=== PATIENT | male | born 1980 | race Caucasian/White ===

== ENCOUNTER 2021-02-20 13:59 | Emergency (ER) | payer SELFPAY ==
[2021-02-20 16:50] LABS: Basophils # (Auto) 0.1 K/mm3 (0.0-0.1); Eosinophils # (Auto) 0.1 K/mm3 (0.0-0.4); Eosinophils % (Auto) 0.9 % (0.0-4.3); Hematocrit 38.5 % (35.5-45.6); Hemoglobin 12.9 gm/dl (11.8-15.2); Lymphocytes # (Auto) 2.1 K/mm3 (1.2-5.4); Lymphocytes % (Auto) 36.2 % (13.4-35.0); Mean Corpuscular HGB Conc 33 % (32-34); Mean Corpuscular Volume 82 fl (84-94); Monocytes # (Auto) 0.4 K/mm3 (0.0-0.8); Monocytes % (Auto) 7.5 % (0.0-7.3); Platelet Count 205 K/mm3 (140-440); Red Blood Count 4.71 M/mm3 (3.65-5.03); Red Cell Distribution Width 14.5 % (13.2-15.2)
[2021-02-20 17:13] LABS: Alanine Aminotransferase 20 units/L (7-56); Albumin 3.8 g/dL (3.9-5); BUN/Creatinine Ratio 14; Blood Urea Nitrogen 13 mg/dL (9-20); Calcium 9.3 mg/dL (8.4-10.2); Hemolysis Index 24
[2021-02-20] MEDS ORDERED: SODIUM CHLORIDE 0.9% 1000 ML 1,000 ML IV ONE (17:31)
[2021-02-20] MEDS ORDERED: INSULIN REGULAR, HUMAN 100 UNITS/1 ML IV ONE (17:32)
--- NOTE | 2021-02-20 17:52 | Emergency Department Report ---
HPI - General Chief Complaint: Hyperglycemia Time Seen by Provider: 02/20/21 17:16 - HPI HPI: This is a 40-year-old -[place] male presents to the emergency department with multiple complaints including hyperglycemia, needing a mental health evalua tion and needing drug/alcohol detox. The patient says that he just recently became homeless about 1 week ago. He has been sleeping behind a local convenience store. The patient lost his residence recently apparently he also lost his medications. Patient is on Metformin XR 500 mg daily, NovoLog 8 to 10 units with meals, and Levemir 26 units at night. The patient also says that he has been feeling very depressed and suicidal secondary to his current situation. He called the [place] crisis line and was told to come to the emergency department for a medical and mental health evaluation, and possibly also for substance abuse. Patient drank "my last 2 beers" around 5 AM this morning. Patient last used crack cocaine yesterday. ED Past Medical Hx - Past Medical History Previous Medical History?: Yes Hx Diabetes: Yes - Surgical History Past Surgical History?: No ED Review of Systems ROS: Stated complaint: HYPERGLYCEMIA Other details as noted in HPI Comment: All other systems reviewed and negative Constitutional: denies: chills, fever Eyes: denies: eye pain, vision change ENT: denies: ear pain, throat pain Respiratory: denies: cough, shortness of breath Cardiovascular: denies: chest pain, palpitations Endocrine: increased thirst Gastrointestinal: denies: abdominal pain, vomiting Genitourinary: denies: dysuria, discharge Musculoskeletal: denies: back pain, arthralgia Skin: denies: rash, lesions Neurological: denies: headache, weakness Psychiatric: depression, suicidal thoughts. denies: auditory hallucinations, visual hallucinations Physical Exam - Physical Exam Vital Signs: Vital Signs 02/20/21 16:05 Temperature 98.8 F Pulse Rate 70 Respiratory 18 Rate Blood Pressure 129/78 [Right] O2 Sat by Pulse 100 Oximetry Physical Exam: GENERAL: The patient is well-developed well-nourished. HENT: Normocephalic. Atraumatic. Patient has moist mucous membranes. EYES: Extraocular motions are intact. NECK: Supple. Trachea is midline. CHEST/LUNGS: Clear to auscultation. There is no respiratory distress noted. HEART/CARDIOVASCULAR: Regular. There is no tachycardia. There is no murmur. ABDOMEN: Abdomen is soft, nontender. Patient has normal bowel sounds. SKIN: Skin is warm and dry. NEURO: The patient is awake, alert, and oriented. The patient is cooperative. The patient has no focal neurologic deficits. Normal speech. MUSCULOSKELETAL: There is no tenderness or deformity. There is no limitation range of motion. ED Course Vital Signs 02/20/21 16:05 Temperature 98.8 F Pulse Rate 70 Respiratory 18 Rate Blood Pressure 129/78 [Right] O2 Sat by Pulse 100 Oximetry ED Medical Decision Making - Lab Data Result diagrams: 02/20/21 16:32 02/20/21 16:32 Lab Results 02/20/21 02/20/21 02/20/21 Range/Units 16:03 16:32 16:32 WBC 5.7 (4.5-11.0) K/mm3 RBC 4.71 (3.65-5.03) M/mm3 Hgb 12.9 (11.8-15.2) gm/dl Hct 38.5 (35.5-45.6) % MCV 82 L (84-94) fl MCH 27 L (28-32) pg MCHC 33 (32-34) % RDW 14.5 (13.2-15.2) % Plt Count 205 (140-440) K/mm3 Lymph % (Auto) 36.2 H (13.4-35.0) % [place] % (Auto) 7.5 H (0.0-7.3) % Eos % (Auto) 0.9 (0.0-4.3) % Baso % (Auto) 1.0 (0.0-1.8) % Lymph # (Auto) 2.1 (1.2-5.4) K/mm3 [place] # (Auto) 0.4 (0.0-0.8) K/mm3 Eos # (Auto) 0.1 (0.0-0.4) K/mm3 Baso # (Auto) 0.1 (0.0-0.1) K/mm3 Seg Neutrophils % 54.4 (40.0-70.0) % Seg Neutrophils # 3.1 (1.8-7.7) K/mm3 VBG pH (7.320-7.420) Sodium 133 L (137-145) mmol/L Potassium 4.5 (3.6-5.0) mmol/L Chloride 95.4 L (98-107) mmol/L Carbon Dioxide 25 (22-30) mmol/L Anion Gap 17 mmol/L BUN 13 (9-20) mg/dL Creatinine 0.9 (0.8-1.3) mg/dL Estimated GFR > 60 ml/min BUN/Creatinine Ratio 14 % Glucose 382 H (75-100) mg/dL POC Glucose 407 H (70-105) mg/dL Calcium 9.3 (8.4-10.2) mg/dL Total Bilirubin 0.30 (0.1-1.2) mg/dL AST 29 (5-40) units/L ALT 20 (7-56) units/L Alkaline Phosphatase 75 (35-129) units/L Total Protein 6.6 (6.3-8.2) g/dL Albumin 3.8 L (3.9-5) g/dL Albumin/Globulin Ratio 1.4 % Plasma/Serum Alcohol (0-0.07) % 02/20/21 02/20/21 02/20/21 Range/Units 16:32 17:47 19:20 WBC (4.5-11.0) K/mm3 RBC (3.65-5.03) M/mm3 Hgb (11.8-15.2) gm/dl Hct (35.5-45.6) % MCV (84-94) fl MCH (28-32) pg MCHC (32-34) % RDW (13.2-15.2) % Plt Count (140-440) K/mm3 Lymph % (Auto) (13.4-35.0) % [place] % (Auto) (0.0-7.3) % Eos % (Auto) (0.0-4.3) % Baso % (Auto) (0.0-1.8) % Lymph # (Auto) (1.2-5.4) K/mm3 [place] # (Auto) (0.0-0.8) K/mm3 Eos # (Auto) (0.0-0.4) K/mm3 Baso # (Auto) (0.0-0.1) K/mm3 Seg Neutrophils % (40.0-70.0) % Seg Neutrophils # (1.8-7.7) K/mm3 VBG pH 7.399 (7.320-7.420) Sodium (137-145) mmol/L Potassium (3.6-5.0) mmol/L Chloride (98-107) mmol/L Carbon Dioxide (22-30) mmol/L Anion Gap mmol/L BUN (9-20) mg/dL Creatinine (0.8-1.3) mg/dL Estimated GFR ml/min BUN/Creatinine Ratio % Glucose (75-100) mg/dL POC Glucose 242 H (70-105) mg/dL Calcium (8.4-10.2) mg/dL Total Bilirubin (0.1-1.2) mg/dL AST (5-40) units/L ALT (7-56) units/L Alkaline Phosphatase (35-129) units/L Total Protein (6.3-8.2) g/dL Albumin (3.9-5) g/dL Albumin/Globulin Ratio % Plasma/Serum Alcohol < 0.01 (0-0.07) % - Medical Decision Making This patient presents to the emergency department with complaint of depression and suicidal ideations as he has recently become homeless. For this reason he has been made a 1013 and placed on an ED hold. Patient has a history of diabetes for which he was on both pills and insulin and has not had his medication for about 1 week. Blood sugar is about 400. No venous acidosis and no significant elevation in anion gap and therefore the patient does not appear diabetic ketoacidosis. A liter of IV fluid was given a nd a dose of IV insulin and his blood sugars come down to about 230. The rest the patient's blood work is unremarkable occluding CBC, metabolic panel Vital signs are reassuring throughout his ED course thus far. Patient is medically cleared for psychiatric placement. He will be seen by the psychiatric team who will assist with further disposition. Critical Care Time: No Critical care attestation.: If time is entered above; I have spent that time in minutes in the direct care of this critically ill patient, excluding procedure time. ED Disposition Clinical Impression: Hyperglycemia, Suicidal ideations Depression Qualifiers: Depression Type: unspecified Qualified Code(s): F32.9 - Major depressive disorder, single episode, unspecified Disposition: DC/TX-65 PSY HOSP/PSY UNIT Is pt being admited?: No Condition: Stable Referrals: PRIMARY CARE, [Primary Care Provider] - 3-5 Days Time of Disposition: 20:10
[2021-02-20] MEDS ORDERED: DEXTROSE 50% IN WATER (25GM) 50 ML SYRINGE IV PRN (19:54)
[2021-02-21] MEDS: INSULIN REGULAR, HUMAN 100 UNITS/1 ML SUB-Q SCH ×5 (00:16→23:33)
[2021-02-21] MEDS: metFORMIN XR 500MG TAB PO SCH (08:43)
[2021-02-21 09:21] LABS: Bacteria,Urine 1+ /HPF (Negative); Mucus,Urine FEW /HPF
[2021-02-21 09:28] LABS: Amphetamine Screen,Urine Negative; Benzodiazepines Screen,Urine Negative; Cannabinoid Screen,Urine Negative; Methadone Screen,Urine Negative; Opiate Screen,Urine Negative
[2021-02-21 09:38] LABS: Bilirubin,Urine NEG (Negative); Blood,Urine SM (Negative); Color,Urine Yellow (Yellow); Protein,Urine <15 mg/dL mg/dL (Negative); WBC,Urine < 1.0 /HPF (0.0-6.0)
[2021-02-21 09:59] LABS: Cocaine Screen,Urine Positive
--- NOTE | 2021-02-21 09:59 | Emergency Department Report ---
Blank Doc - Documentation Documentation: Patient has no acute issues besides bilateral swelling of his feet. BMP will be obtained and reviewed upon his return. Patient awaiting mental health disposition
--- NOTE | 2021-02-21 11:56 | Consultation ---
History of Present Illness - Reason for Consult Consult date: 02/21/21 Reason for consult: SI, hallucinations, substance abuse - History of Present Psychiatric Illness Per ER Note: This is a 40-year-old -Bhut[place] male presents to the emergency department with multiple complaints including hyperglycemia, needing a mental health evaluation and needing drug/alcohol detox. The patient says that he just recently became homeless about 1 week ago. He has been sleeping behind a local convenience store. The patient lost his residence recently apparently he also lost his medications. Patient is on Metformin XR 500 mg daily, NovoLog 8 to 10 units with meals, and Levemir 26 units at night. The patient also says that he has been feeling very depressed and suicidal secondary to his current situation. He called the [place] crisis line and was told to come to the emergency department for a medical and mental health evaluation, and possibly also for substance abuse. Patient drank "my last 2 beers" around 5 AM this morning. Patient last used crack cocaine yesterday. The patient was seen today, he is a 40y/o male patient who endorses suicidal thoughts, and hallucinations telling him he is worthless and calling his name and telling him he doesn't belong here. He denies having a plan to commit suicide. The patient says he drinks sometimes to self medicate and calm the voices and the feeling. He says he relapsed on alcohol and crack. The patient says he is homeless and states that also plays a role in how he feels. He says he was diagnosed with depression and was on prozac but has not been on it in a while. PAST PSYCHIATRIC HISTORY: Diagnoses: Depression Suicide attempts or Self-harm behavior: Denies Prior psychiatric hospitalizations: Denies Substance Abuse history: ETOH, crack Previous psychiatric medications tried: prozac Outpatient treatment: not in awhile PAST MEDICAL HISTORY: None reported or document Family Psychiatric History: None reported or documented SOCIAL HISTORY Marital Status: Single Living Arrangements: homeless Employment Status: Disabled Access to guns/weapons: denies Education: History of Abuse: denies Legal History: denies REVIEW OF SYSTEMS Constitutional: Negative for weight loss ENT: Negative for stridor Respiratory: Negative for cough or hemoptysis All other systems reviewed and are negative MENTAL STATUS EXAMINATION General Appearance and Behavior: Age appropriate, wearing appropriate clothes, cooperative, polite with questioning, fair eye contact, calm Cooperation: cooperative Psychomotor Behavior: Psychomotor normal Mood: "depressed" Affect and affective range: congruent with stated mood Thought Process: goal directed Thought Content: hallucinations, SI Speech: Normal volume, Regular rate and rhythm Suicidal Ideation: Denies Homicidal Ideation: Denies hallucination: Auditory Delusions: None elicited Impulse Control: Intact Insight and Judgment: Limited Memory: Intact Attention: attentive, engaging Orientation: Alert and oriented Diagnoses: Major Depressive Disorder Cocaine Use Disorder Treatment Plan Seroquel 25mg po BID Prozac 10mg po daily PSYCHOTHERAPY: Supportive psychotherapy provided MEDICAL: Per primary team DELIRIUM PRECAUTIONS: Please re-orient patient frequently, keep lights on during the day, and minimize benzodiazepines and opiates as these medications could worsen patient's confusion. 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 Please contact with any questions and/or concerns. Case staffed with Dr. Cali Medications and Allergies Allergies Allergy/AdvReac Type Severity Reaction Status Date / Time No Known Allergies Allergy Unverified 02/20/21 15:59 Active Meds: Active Medications Dextrose (Dextrose 50% In Water (25gm) 50 Ml Syringe) 50 ml IV Q30MIN PRN; Protocol PRN Reason: Hypoglycemia Insulin Human Regular (Insulin Regular, Human 100 Units/1 Ml) 3 units SUB-Q ACHS [facility]; Protocol Last Admin: 02/21/21 11:22 Dose: 3 units Documented by: Metformin HCl (Metformin Xr 500mg Tab) 500 mg PO QDDIAB [facility] Last Admin: 02/21/21 08:43 Dose: 500 mg Documented by: Mental Status Exam - Vital signs Last Vital Signs Temp 97.6 F 02/21/21 08:15 Pulse 66 02/21/21 08:15 Resp 20 02/21/21 08:15 BP 135/90 02/21/21 08:15 Pulse Ox 98 02/21/21 08:15 Results Result Diagrams: 02/20/21 16:32 02/20/21 16:32 Abnormal lab results 02/20/21 02/20/21 02/20/21 Range/Units 16:03 16:32 16:32 MCV 82 L (84-94) fl MCH 27 L (28-32) pg Lymph % (Auto) 36.2 H (13.4-35.0) % [place] % (Auto) 7.5 H (0.0-7.3) % Sodium 133 L (137-145) mmol/L Chloride 95.4 L (98-107) mmol/L Glucose 382 H (75-100) mg/dL POC Glucose 407 H (70-105) mg/dL Albumin 3.8 L (3.9-5) g/dL 02/20/21 02/20/21 02/21/21 Range/Units 19:20 23:32 07:17 MCV (84-94) fl MCH (28-32) pg Lymph % (Auto) (13.4-35.0) % [place] % (Auto) (0.0-7.3) % Sodium (137-145) mmol/L Chloride (98-107) mmol/L Glucose (75-100) mg/dL POC Glucose 242 H 243 H 216 H (70-105) mg/dL Albumin (3.9-5) g/dL All other labs normal.
[2021-02-21] MEDS ORDERED: FLUoxetine 10 MG TAB PO SCH (13:00)
[2021-02-21] MEDS: QUEtiapine 25 MG TAB PO SCH ×2 (14:53→22:23)
[2021-02-21] MEDS: INSULIN NPH/REGULAR 70/30 INJ SUB-Q SCH (17:14)
[2021-02-22] MEDS: INSULIN REGULAR, HUMAN 100 UNITS/1 ML SUB-Q SCH ×3 (07:46→16:28)
[2021-02-22] MEDS: INSULIN NPH/REGULAR 70/30 INJ SUB-Q SCH ×3 (07:49→16:29)
[2021-02-22] MEDS: metFORMIN XR 500MG TAB PO SCH (08:16)
--- NOTE | 2021-02-22 09:03 | Progress Note ---
Subjective - Reason for Consult Consult date: 02/22/21 Reason for consult: SI,hallucinations - Chief Complaint Chief complaint: The patient was seen today, he still endorses suicidal thoughts with no plan. He verbalizes visual hallucinations. The patient says "I seen my fiend over in the corner this morning." REVIEW OF SYSTEMS Constitutional: Negative for weight loss ENT: Negative for stridor Respiratory: Negative for cough or hemoptysis All other systems reviewed and are negative MENTAL STATUS EXAMINATION General Appearance and Behavior: Age appropriate, wearing appropriate clothes, cooperative, polite with questioning, fair eye contact, calm Cooperation: cooperative Psychomotor Behavior: Psychomotor normal Mood: "depressed" Affect and affective range: congruent with stated mood Thought Process: goal directed Thought Content: hallucinations, SI Speech: Normal volume, Regular rate and rhythm Suicidal Ideation: Denies Homicidal Ideation: Denies hallucination: visual Delusions: None elicited Impulse Control: Intact Insight and Judgment: Limited Memory: Intact Attention: attentive, engaging Orientation: Alert and oriented Diagnoses: Major Depressive Disorder Cocaine Use Disorder Treatment Plan Increased Seroquel 50mg po BID Increased Prozac 20mg po daily PSYCHOTHERAPY: Supportive psychotherapy provided MEDICAL: Per primary team DELIRIUM PRECAUTIONS: Please re-orient patient frequently, keep lights on during the day, and minimize benzodiazepines and opiates as these medications could worsen patient's confusion. 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 Please contact with any questions and/or concerns. Case staffed with Dr. Cali Mental Status Exam - Vital signs Last Vital Signs Temp 98.5 F 02/22/21 08:18 Pulse 54 L 02/22/21 08:18 Resp 18 02/22/21 08:18 BP 129/89 02/22/21 08:18 Pulse Ox 100 02/22/21 08:18
[2021-02-22] MEDS ORDERED: FLUoxetine 20 MG CAP PO SCH (10:00)
[2021-02-22] MEDS: QUEtiapine 25 MG TAB PO SCH (10:00)
[2021-02-22] MEDS ORDERED: IBUPROFEN 800 MG TAB PO PRN (10:22)
--- NOTE | 2021-02-22 10:27 | Event Note ---
Date: 02/22/21 S: No events reported overnight. Patient complains of pain in the right ankle with ambulation. Patient states he does not recall a specific injury. Will order x-ray of the right ankle O: Vital signs reviewed and stable Vital Signs 02/20/21 02/20/21 02/20/21 16:05 20:41 22:00 Temperature 98.8 F 98.5 F Pulse Rate 70 79 Respiratory 18 18 18 Rate Blood Pressure 129/78 163/97 [Right] O2 Sat by Pulse 100 98 98 Oximetry 02/21/21 02/21/21 02/21/21 02:08 08:15 19:56 Temperature 98.0 F 97.6 F Pulse Rate 70 66 Respiratory 18 20 18 Rate Blood Pressure 163/90 135/90 [Right] O2 Sat by Pulse 98 98 98 Oximetry 02/21/21 02/22/21 02/22/21 20:00 01:00 08:18 Temperature 97.6 F 98.6 F 98.5 F Pulse Rate 60 70 54 L Respiratory 20 20 18 Rate Blood Pressure 134/74 138/69 129/89 [Right] O2 Sat by Pulse 100 99 100 Oximetry Musculoskeletal: Mild tenderness to palpation of the lateral malleolus of the right ankle. No appreciable edema or erythema X-ray right ankle (read by myself)-no acute fracture seen. No dislocation. [address] [address] XRay Report Signed Patient: NATANAEL MCKINNEY MR#: [id number] : 1980 Acct:[id number] Age/Sex: 40 / M ADM Date: 02/20/21 Loc: ED Attending Dr: Ordering Physician: RODGER SHEPHERD MD Date of Service: 02/22/21 Procedure(s): XR ankle 2V RT Accession Number(s): [id number] cc: RODGER SHEPHERD MD Fluoro Time In Minutes: Right ankle-2 views INDICATION: Pain with ambulation. COMPARISON: None. IMPRESSION: No acute osseous abnormality. Soft tissues are normal. Normal alignment. No significant DJD. Signer Name: Gerald Charlton MD Signed: 02/22/2021 11:21 AM Workstation Name: [email or web address] Transcribed By: ADILSON Dictated By: Gerald Charlton MD Electronically Authenticated By: Gerald Charlton MD Signed Date/Time: 02/22/211120 DD/ 20 TD/TT: Print Cancel P: Awaiting psychiatric placement Ibuprofen as needed
--- NOTE | 2021-02-22 11:26 | XRay Report ---
Right ankle-2 views INDICATION: Pain with ambulation. COMPARISON: None. IMPRESSION: No acute osseous abnormality. Soft tissues are normal. Normal alignment. No significa nt DJD. Signer Name: Gerald Charlton MD Signed: 02/22/2021 11:21 AM Workstation Name: [id number]
[2021-02-22] MEDS ORDERED: INSULIN REGULAR, HUMAN 100 UNITS/1 ML ONE (11:30)
[2021-02-23] MEDS: QUEtiapine 25 MG TAB PO SCH (00:41)
[2021-02-23] MEDS: INSULIN REGULAR, HUMAN 100 UNITS/1 ML SUB-Q SCH ×4 (01:25→17:05)
[2021-02-23] MEDS: INSULIN NPH/REGULAR 70/30 INJ SUB-Q SCH ×3 (08:17→17:05)
[2021-02-23] MEDS: metFORMIN XR 500MG TAB PO SCH (08:17)
--- NOTE | 2021-02-23 09:41 | Progress Note ---
Subjective - Reason for Consult Consult date: 02/23/21 Reason for consult: SI - Chief Complaint Chief complaint: The patient was seen today, he still endorses suicidal thoughts with no plan. He verbalizes visual hallucinations. The patient says "he's seeing people and hearing voices telling him to hurt himself." He is laying down rocking back and forth and states "moving like this distracts me from hearing the voices." REVIEW OF SYSTEMS Constitutional: Negative for weight loss ENT: Negative for stridor Respiratory: Negative for cough or hemoptysis All other systems reviewed and are negative MENTAL STATUS EXAMINATION General Appearance and Behavior: Age appropriate, wearing appropriate clothes, cooperative, polite with questioning, fair eye contact, calm Cooperation: cooperative Psychomotor Behavior: Psychomotor normal Mood: "depressed" Affect and affective range: congruent with stated mood Thought Process: goal directed Thought Content: hallucinations, SI Speech: Normal volume, Regular rate and rhythm Suicidal Ideation: Denies Homicidal Ideation: Denies hallucination: visual Delusions: None elicited Impulse Control: Intact Insight and Judgment: Limited Memory: Intact Attention: attentive, engaging Orientation: Alert and oriented Diagnoses: Major Depressive Disorder Cocaine Use Disorder Treatment Plan Increased Seroquel 100mg po BID Increased Prozac 30mg po daily PSYCHOTHERAPY: Supportive psychotherapy provided MEDICAL: Per primary team DELIRIUM PRECAUTIONS: Please re-orient patient frequently, keep lights on during the day, and minimize benzodiazepines and opiates as these medications could worsen patient's confusion. 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 Please contact with any questions and/or concerns. Case staffed with Dr. Cali Mental Status Exam - Vital signs Last Vital Signs Temp 98.0 F 02/23/21 02:00 Pulse 50 L 02/23/21 02:00 Resp 18 02/23/21 02:00 BP 114/79 02/23/21 02:00 Pulse Ox 98 02/23/21 02:00
--- NOTE | 2021-02-23 10:32 | Event Note ---
Date: 02/23/21 Patient is a 40 years old male with history of depression and suicidal ideation. Patient also had history of diabetes. No overnight issues. Vital signs stable. Labs reviewed and is unremarkable. Accu-Chek remained above 200. We will continue current regimen of 70/30 and sliding scale. CIWA protocol initiated as requested by receiving facility. Waiting for acceptance.
[2021-02-23] MEDS: QUEtiapine 100 MG TAB PO SCH (12:49)
[2021-02-23] MEDS: FLUoxetine 10 MG TAB PO SCH (12:49)
[2021-02-24] MEDS: INSULIN REGULAR, HUMAN 100 UNITS/1 ML SUB-Q SCH ×5 (00:07→23:00)
[2021-02-24] MEDS: QUEtiapine 100 MG TAB PO SCH ×3 (00:08→22:58)
[2021-02-24] MEDS: metFORMIN XR 500MG TAB PO SCH (08:08)
[2021-02-24] MEDS: INSULIN NPH/REGULAR 70/30 INJ SUB-Q SCH ×3 (08:09→19:59)
[2021-02-24] MEDS: FLUoxetine 10 MG TAB PO SCH (10:00)
--- NOTE | 2021-02-24 10:09 | Event Note ---
S: sleeping O: stable vital signs A: depression, suicidality, hyperglycemia P: High-dose sliding scale regimen, patient is medically clear for psychiatric care, awaiting treatment recommendations per psychiatric team
--- NOTE | 2021-02-24 13:07 | Progress Note ---
Subjective - Reason for Consult Consult date: 02/24/21 Reason for consult: Suicidal ideation - Chief Complaint Chief complaint: The patient was seen today in Ed waiting room, he continues to endorses suicidal ideation with no plan. He verbalizes visual hallucinations. The patient reports voices telling him "let's get out of here and get high." Patient reports sleep and appetite as good. He denies any homicidal ideation. REVIEW OF SYSTEMS Constitutional: Negative for weight loss ENT: Negative for stridor Respiratory: Negative for cough or hemoptysis All other systems reviewed and are negative MENTAL STATUS EXAMINATION General Appearance and Behavior: Age appropriate, wearing appropriate clothes, cooperative, polite with questioning, fair eye contact, calm Cooperation: cooperative Psychomotor Behavior: Psychomotor normal Mood: "depressed" Affect and affective range: congruent with stated mood Thought Process: goal directed Thought Content: hallucinations, SI Speech: Normal volume, Regular rate and rhythm Suicidal Ideation: Denies Homicidal Ideation: Denies hallucination: auditory/visual Delusions: None elicited Impulse Control: Intact Insight and Judgment: Limited Memory: Intact Attention: attentive, engaging Orientation: Alert and oriented Diagnoses: Major Depressive Disorder, Recurrent, Severe- F33.2 Cocaine Use Disorder Treatment Plan Continue- Seroquel 100mg po BID Continue- Prozac 30mg po daily PSYCHOTHERAPY: Supportive psychotherapy provided MEDICAL: Per primary team DELIRIUM PRECAUTIONS: Please re-orient patient frequently, keep lights on during the day, and minimize benzodiazepines and opiates as these medications could worsen patient's confusion. DISABILITY COUNSELOR: Per medical team DISPOSITION: Recommend acute psychiatric inpatient treatment Will follow Thank you for the consult. Please contact with any questions and/or concerns. Case staffed with Dr. Cali Mental Status Exam - Vital signs Last Vital Signs Temp 97.8 F 02/24/21 08:00 Pulse 62 02/24/21 08:00 Resp 14 02/24/21 08:00 BP 93/53 02/24/21 08:00 Pulse Ox 98 02/24/21 08:00
[2021-02-25] MEDS: INSULIN REGULAR, HUMAN 100 UNITS/1 ML SUB-Q SCH ×2 (07:18→11:55)
[2021-02-25] MEDS: metFORMIN XR 500MG TAB PO SCH (08:15)
[2021-02-25 08:57] VITALS: BP 113/68
--- NOTE | 2021-02-25 10:11 | Progress Note ---
Subjective - Reason for Consult Consult date: 02/25/21 Reason for consult: Suicidal ideation - Chief Complaint Chief complaint: The patient was seen today in ED waiting room, he denies suicidal / homicidal ideation . He continues to endorse visual hallucinations. He reports sleep and appetite as good. No compliant today. REVIEW OF SYSTEMS Constitutional: Negative for weight loss ENT: Negative for stridor Respiratory: Negative for cough or hemoptysis All other systems reviewed and are negative MENTAL STATUS EXAMINATION General Appearance and Behavior: Age appropriate, wearing appropriate clothes, c ooperative, polite with questioning, fair eye contact, calm Cooperation: cooperative Psychomotor Behavior: Psychomotor normal Mood: "good" Affect and affective range: congruent with stated mood Thought Process: goal directed Thought Content:denies SI Speech: Normal volume, Regular rate and rhythm Suicidal Ideation: Denies Homicidal Ideation: Denies hallucination: visual Delusions: None elicited Impulse Control: Intact Insight and Judgment: Limited Memory: Intact Attention: attentive, engaging Orientation: Alert and oriented Diagnoses: Major Depressive Disorder, Recurrent, Severe- F33.2 Cocaine Use Disorder Treatment Plan Continue- Seroquel 100mg po BID Continue- Prozac 30mg po daily PSYCHOTHERAPY: Supportive psychotherapy provided MEDICAL: Per primary team DELIRIUM PRECAUTIONS: Please re-orient patient frequently, keep lights on during the day, and minimize benzodiazepines and opiates as these medications could worsen patient's confusion. 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 Will sign off. The patient should be compliant with medications, not to use drugs and not to drink alcohol. The patient understands that if suicidal ideas, homicidal ideas or any endangering thoughts/behavior should arise, they should immediately seek for emergent assistance including but not limited to crisis hot line and emergency room. Follow up with outpatient psychiatry and PCP within 7- 14 day post discharge. Please contact with any questions and/or concerns. Case staffed with Dr. Cali Mental Status Exam - Vital signs Last Vital Signs Temp 97.8 F 02/25/21 08:57 Pulse 62 02/25/21 08:57 Resp 20 02/25/21 08:57 BP 113/68 02/25/21 08:57 Pulse Ox 100 02/25/21 08:57
[2021-02-25] MEDS: FLUoxetine 10 MG TAB PO SCH (10:54)
[2021-02-25] MEDS: QUEtiapine 100 MG TAB PO SCH (10:54)
--- NOTE | 2021-02-25 12:53 | Event Note ---
Date: 02/25/21 Patient has been seen, evaluated, and cleared by psychiatry team. 1013 rescinded. Inpatient placement is no longer recommended. Patient will be discharged at this time with outpatient follow-up information.
== END 2021-02-25 13:18 | disposition home or self-care (01) ==
LOC: ED 13:59
DX: E11.65 Type 2 diabetes mellitus with hyperglycemia (principal); Z20.822 Contact with and (suspected) exposure to COVID-19; R45.851 Suicidal ideations; F32.9 Major depressive disorder, single episode, unspecified; R06.89 Other abnormalities of breathing
CPT/HCPCS: 36415; 73600; 80053; 80307; 81001; 82805; 82962; 83880; 85025; 96361; 96372; 96374; 99285; J7030; U0003; 80320; G0480; J1815